=== PATIENT | female | born 1965 | race Two or more races ===

== ENCOUNTER 2024-10-27 20:35 | Inpatient (IN) | payer BC ==
[~2024-10-27] VITALS: Ht 152.4 cm; Wt 49.9 kg
[2024-10-27] MEDS ORDERED: CEVIMELINE (20:38)
[2024-10-27] MEDS ORDERED: HYDROXYCHLOROQ100 MG PO (20:39)
--- NOTE | 2024-10-27 20:42 | NUR ---
PTE ALERTA Y ORIENTADA X3 REFIERE SENTIR INFLAMADO EL ABDOMEN, AL MOMENTO PTE NIEGA TENER SINTOMAS GASTROINTESTINALES. SE MIDEN SV Y SE UBICA. FAMILIAR DE PTE REFIERE QUE PTE FUE DIAGNOSTICADA CON COVID RECIENTEMENTE, SIN EMBARGO PTE NO COMPLETO TRATAMIENTO Y QUE PTE EUBANKS ESTADO [place] INCOHERENCIAS Y MOVIMIENTOS ERRATICOS. PTE REFIERE PADECER DE SJOGREN.
[2024-10-27] MEDS ORDERED: CEVIMELINE HCL30 MG PO (20:49)
[2024-10-27] MEDS ORDERED: FAMOTIDINE/PF 20 MG/2 ML VIAL IV PUSH STA (21:41)
[2024-10-27] MEDS ORDERED: LACTOBACILLUS ACIDOPHILUS 1 CAP CAP PO STA (21:42)
--- NOTE | 2024-10-27 21:45 | NUR ---
RN LABOY ORIENTA PTE SOBRE TX, REFIERE ENTENDER Y ACEPTAR. LE JUAN LUIS MUESTRAS DE LABORATORIO, LE ADMINISTRA MEDICAMENTOS Y PTE TOLERA. PENDIENTE XRAYS YA NOTIFICADOS.
[2024-10-27] MEDS ORDERED: FAMOTIDINE/PF 20 MG/2 ML VIAL ONE (21:55)
[2024-10-27] MEDS ORDERED: LACTOBACILLUS ACIDOPHILUS 1 CAP CAP PO ONE (21:55)
[2024-10-27 22:15] LABS: HEMATOCRIT 35.9 % (36.0-45.00); HEMOGLOBIN 12.3 g/dL (12.0-15.00); MEAN CELL VOLUME 87.8 fL (80.00-100.00); MEAN CORPUSCULAR HEMOGLOBIN 30.1 pg (27.00-32.0); MEAN CORPUSCULAR HGB CONC 34.3 g/dl (32.0-36.0); PLATELET COUNT 445 K/uL (150-450); RED BLOOD COUNT 4.09 M/uL (4.00-6.00); RED CELL DISTRIBUTION WIDTH 13.3 % (11.5-14.5)
[2024-10-27 22:37] LABS: ALBUMIN 1.9 gm/dL (3.4-5.0); BILIRUBIN TOTAL 0.51 mg/dL (0.3-1.2); CREATININE SERUM 2.33 mg/dL (0.55-1.02); GFR 21.31; GLOBULINA 5.8 G/DL (2.4-3.5); POTASSIUM 4.05 mEq/L (3.5-5.1); TOTAL PROTEIN 7.7 gm/dL (6.4-8.2)
[2024-10-27] MEDS ORDERED: CEFTRIAXONE SODIUM 2,000 MG VIAL IV STA (23:03)
[2024-10-27] MEDS ORDERED: SODIUM CHLORIDE 0.45 % 1,000 ML IV STA (23:05)
[2024-10-27] MEDS ORDERED: CEFTRIAXONE SODIUM 2,000 MG VIAL ONE (23:22)
[2024-10-27] MEDS ORDERED: 0.9 % SODIUM CHLORIDE 1,000 ML IV STA (23:51)
[2024-10-28] LABS: PH,URINE 5.5 (5.0-8.0); URINE APPEARANCE Clear; URINE BILIRRUBIN Negative (NEGATIVE); URINE BLOOD Large; URINE COLOR Yellow; URINE GLUCOSE Negative (NEGATIVE); URINE KETONE Negative (NEGATIVE); URINE LEUKOCYTE Trace; URINE NITRATE Negative; URINE PROTEIN Trace (NEGATIVE); URINE UROBILINOGEN 0.2 E.U./dl
[2024-10-28 00:03] LABS: URINE BACTERIA 455.3 uL (0.0-1933); URINE WBC 37.8 uL (0.0-23.2)
--- NOTE | 2024-10-28 07:00 | NUR ---
SE RECIBE PTE ALERTA Y ORIENTADA X3 EN ZACH BAJA Y BARANDAS ELEVADAS POR BURROWS SEGURIDAD PTE CON EXTRENMIDADES SUPERIOIRES LIBRES DE EDEMA Y ERITEMA CON CANALIZACION EN BRAZO CYNDI ANGIO #20 POR EL CUAL ESTA RECIBIENDO INFUSION DE 0.45% NSS @ 80ML/HR. PTE AL MOMENTO DE RECIBIR NO PRESENTA DOLOR.
[2024-10-28] MEDS ORDERED: FAMOTIDINE/PF 20 MG in 0.9 % SODIUM CHLORIDE 8 ML IV PUSH SCH (10:05)
[2024-10-28] MEDS ORDERED: LACTULOSE 20 G/30 ML BLIST.PACK PO ONE (10:15)
[2024-10-28] MEDS ORDERED: MORPHINE SULFATE 2 MG/ML CARTRIDGE IV PRN (10:15)
[2024-10-28] MEDS ORDERED: 0.9 % SODIUM CHLORIDE 1,000 ML IV SCH (10:15)
[2024-10-28] MEDS ORDERED: MINERAL OIL 30 ML BLIST.PACK PO ONE (10:15)
[2024-10-28] MEDS ORDERED: ALBUMIN HUMAN 5% 0.05GM/ML (250ML) VIAL IV PRN (10:30)
[2024-10-28] MEDS ORDERED: MINERAL OIL 30 ML BLIST.PACK ONE (11:06)
[2024-10-28] MEDS ORDERED: PIPERACILLIN/TAZOBACTAM SODIUM 3.375 GM VIAL IV ONE (11:07)
[2024-10-28] MEDS ORDERED: LACTULOSE 20 G/30 ML BLIST.PACK ONE (11:07)
[2024-10-28] MEDS ORDERED: FAMOTIDINE/PF 20 MG/2 ML VIAL ONE (11:07)
[2024-10-28 11:49] VITALS: BP 95/71; O2SAT 100
[2024-10-28 11:49] LABS: HEMATOCRIT 35.7 % (36.0-45.00); MEAN CELL VOLUME 88.7 fL (80.00-100.00); MEAN CORPUSCULAR HGB CONC 32.9 g/dl (32.0-36.0); RED BLOOD COUNT 4.02 M/uL (4.00-6.00); RED CELL DISTRIBUTION WIDTH 12.8 % (11.5-14.5)
[2024-10-28 11:53] VITALS: BP 95/71
[2024-10-28] MEDS ORDERED: PIPERACILLIN/TAZOBACTAM SODIUM 3.375 GM in 0.9 % SODIUM CHLORIDE 100 ML IV SCH (12:00)
[2024-10-28 12:05] LABS: HEMOGLOBIN 11.7 g/dL (12.0-15.00); MEAN CORPUSCULAR HEMOGLOBIN 29.1 pg (27.00-32.0)
[2024-10-28 12:15] LABS: PLATELET COUNT 431 K/uL (150-450)
[2024-10-28 12:28] LABS: AMYLASE 88 U/L (25-115); LIPASE 111 U/L (13-75)
[2024-10-28 12:32] LABS: BILIRUBIN TOTAL 0.53 mg/dL (0.3-1.2); BILIRUBIN,CONJUGATED 0.29 mg/dL (0.0-0.2); BILIRUBIN,UNCONJUGATED 0.24 mg/dL (0.0-0.6); CALCIUM 9.2 mg/dL (8.5-10.1); CREATININE SERUM 1.88 mg/dL (0.55-1.02); GFR 27.3; PHOSPHOROUS 3.5 mg/dL (2.5-4.9); POTASSIUM 4.07 mEq/L (3.5-5.1); TOTAL PROTEIN 7.8 gm/dL (6.4-8.2)
[2024-10-28 12:33] LABS: C-REACTIVE PROTEIN 15.8 MG/DL (0.00-0.29)
[2024-10-28 20:25] VITALS: BP 115/69
[2024-10-29 01:37] VITALS: BP 122/70
[2024-10-29 06:58] LABS: ALBUMIN 1.8 gm/dL (3.4-5.0); BILIRUBIN TOTAL 0.56 mg/dL (0.3-1.2); CALCIUM 8.5 mg/dL (8.5-10.1); CREATININE SERUM 1.71 mg/dL (0.55-1.02); GFR 30.45; GLOBULINA 4.7 G/DL (2.4-3.5); POTASSIUM 5.21 mEq/L (3.5-5.1); TOTAL PROTEIN 6.5 gm/dL (6.4-8.2)
[2024-10-29 08:04] LABS: HEPATITIS B CORE IGM Negative (Negative); HEPATITIS C VIRUS ANTIBODY Non Reactive (Non Reactive)
[2024-10-29 09:25] VITALS: BP 140/74
[2024-10-29] MEDS ORDERED: PIPERACILLIN/TAZOBACTAM SODIUM 2.25 GM in 0.9 % SODIUM CHLORIDE 50 ML IV SCH (12:00)
[2024-10-29 17:29] VITALS: BP 140/72; O2SAT 98
[2024-10-30 03:06] VITALS: BP 118/66
[2024-10-30 06:46] LABS: HEMATOCRIT 34.1 % (36.0-45.00); HEMOGLOBIN 11.2 g/dL (12.0-15.00); MEAN CELL VOLUME 89.4 fL (80.00-100.00); MEAN CORPUSCULAR HEMOGLOBIN 29.3 pg (27.00-32.0); MEAN CORPUSCULAR HGB CONC 32.8 g/dl (32.0-36.0); PLATELET COUNT 404 K/uL (150-450); RED BLOOD COUNT 3.81 M/uL (4.00-6.00); RED CELL DISTRIBUTION WIDTH 13.1 % (11.5-14.5)
[2024-10-30 07:21] LABS: ALBUMIN 1.7 gm/dL (3.4-5.0); BILIRUBIN TOTAL 0.52 mg/dL (0.3-1.2); CALCIUM 7.9 mg/dL (8.5-10.1); CREATININE SERUM 1.34 mg/dL (0.55-1.02); GFR 40.34; GLOBULINA 4.6 G/DL (2.4-3.5); POTASSIUM 4.96 mEq/L (3.5-5.1); TOTAL PROTEIN 6.3 gm/dL (6.4-8.2)
[2024-10-30 07:40] LABS: C-REACTIVE PROTEIN 10.4 MG/DL (0.00-0.29)
[2024-10-30 08:44] VITALS: BP 105/63
[2024-10-30 12:44] LABS: URINE APPEARANCE Clear; URINE BILIRRUBIN Negative (NEGATIVE); URINE BLOOD Negative; URINE COLOR Yellow; URINE GLUCOSE Negative (NEGATIVE); URINE KETONE Negative (NEGATIVE); URINE LEUKOCYTE Negative; URINE NITRATE Negative; URINE PROTEIN Negative (NEGATIVE); URINE UROBILINOGEN 0.2 E.U./dl
[2024-10-30 12:47] LABS: URINE BACTERIA 35.4 uL (0.0-1933); URINE EPITHELIAL CELLS 13.9 uL (0.0-38.8); URINE RBC 16.7 uL (0.0-20.8); URINE WBC 17.5 uL (0.0-23.2)
[2024-10-30 13:05] LABS: URINE CAST 0.44 uL (0.0-1.40)
[2024-10-30 18:27] VITALS: BP 124/76
[2024-10-31 02:49] VITALS: BP 122/68; O2SAT 98
[2024-10-31 05:23] LABS: HEMATOCRIT 31.5 % (36.0-45.00); HEMOGLOBIN 11.2 g/dL (12.0-15.00); MEAN CELL VOLUME 88.5 fL (80.00-100.00); MEAN CORPUSCULAR HEMOGLOBIN 31.4 pg (27.00-32.0); MEAN CORPUSCULAR HGB CONC 35.5 g/dl (32.0-36.0); PLATELET COUNT 172 K/uL (150-450); RED BLOOD COUNT 3.56 M/uL (4.00-6.00); RED CELL DISTRIBUTION WIDTH 13.9 % (11.5-14.5)
[2024-10-31 05:51] LABS: CALCIUM 7.8 mg/dL (8.5-10.1); CREATININE SERUM 1.18 mg/dL (0.55-1.02); GFR 46.72; POTASSIUM 4.72 mEq/L (3.5-5.1)
== END 2024-10-31 07:12 | disposition left against medical advice (07) | DRG 439 ==
LOC: ER 20:37 → SEC-K 10-28 10:25 → MEDJ 10-28 10:25 → MEDI 10-28 18:01 → MEDJ 10-28 18:22
PROVIDERS: General Practice; Internal Medicine Infectious Disease; ADMIT Internal Medicine; ATTEND Internal Medicine
PROC: BW24ZZZ Computerized Tomography (CT Scan) of Chest and Abdomen (ICD-10-PCS; principal; 2024-10-27)
PROC: BW21ZZZ Computerized Tomography (CT Scan) of Abdomen and Pelvis (ICD-10-PCS; 2024-10-27)
DX: K85.90 Acute pancreatitis without necrosis or infection, unspecified (principal); N17.9 Acute kidney failure, unspecified; N39.0 Urinary tract infection, site not specified; D72.829 Elevated white blood cell count, unspecified; B96.20 Unspecified Escherichia coli [E. coli] as the cause of diseases classified elsewhere